=== PATIENT | male | born 1955 | race Caucasian/White ===

== ENCOUNTER → 2016-07-14 | Outpatient (CLI) | payer OTHER ==
[~2016-07-14] MED LIST: FEOSOL325 MG PO; IBUPROFEN800 MG PO; LASIX20 MG PO; LEVAQUIN750 MG PO; PERCOCET 10-321 EACH PO; PERCOCET 5-3251 EACH PO
== END ==
LOC: KOH-I 12:47
DX: J44.9 Chronic obstructive pulmonary disease, unspecified (principal)
CPT/HCPCS: 71020

== ENCOUNTER → 2016-07-30 | Outpatient (CLI) | payer OTHER ==
[2016-07-30 14:04] LABS: HEMOGLOBIN 15.4 gm/dl (14.0-17.5); RED BLOOD COUNT 5.33 M/UL (4.20-5.50); WHITE BLOOD COUNT 9.7 K/UL (4.5-11.0)
[2016-07-30 14:15] LABS: BUN/CREATININE RATIO 14 (0-10)
== END ==
LOC: OPSV2 12:14
PROVIDERS: Orthopaedic Surgery
DX: Z01.810 Encounter for preprocedural cardiovascular examination (principal); Z01.812 Encounter for preprocedural laboratory examination; Z01.818 Encounter for other preprocedural examination; M75.101 Unspecified rotator cuff tear or rupture of right shoulder, not specified as traumatic; J44.9 Chronic obstructive pulmonary disease, unspecified
CPT/HCPCS: 36415; 80048; 81001; 85025; 87081

== ENCOUNTER 2016-08-18 05:48 | Inpatient (IN) | payer OTHER ==
[~2016-08-18] VITALS: Ht 185.4 cm; Wt 102.1 kg
[~2016-08-18 05:48] MED LIST changes: -PERCOCET 10-321 EACH PO
[2016-08-18 06:51] LABS: BUN/CREATININE RATIO 14 (0-10)
[2016-08-19 06:14] LABS: HEMOGLOBIN 12.2 gm/dl (14.0-17.5); RED BLOOD COUNT 4.24 M/UL (4.20-5.50); WHITE BLOOD COUNT 8.1 K/UL (4.5-11.0)
[2016-08-19 06:20] LABS: BUN/CREATININE RATIO 13 (0-10)
[2016-08-20 06:41] LABS: HEMOGLOBIN 13.1 gm/dl (14.0-17.5); RED BLOOD COUNT 4.54 M/UL (4.20-5.50); WHITE BLOOD COUNT 10.7 K/UL (4.5-11.0)
[2016-08-20 07:00] LABS: BUN/CREATININE RATIO 11 (0-10)
[2016-08-20] MEDS ORDERED: PERCOCET 10-321 EACH PO (12:11)
== END 2016-08-20 13:06 | disposition home or self-care (01) | DRG 483 ==
LOC: OR 05:48 → M/S 05:49 → OR 08:15 → M/S 13:21 → OR 13:21 → M/S 08-20 13:06
PROVIDERS: ADMIT Orthopaedic Surgery
PROC: 0RRJ00Z Replacement of Right Shoulder Joint with Reverse Ball and Socket Synthetic Substitute, Open Approach (ICD-10-PCS; principal; 2016-08-18 08:15)
DX: M75.121 Complete rotator cuff tear or rupture of right shoulder, not specified as traumatic (principal); F17.210 Nicotine dependence, cigarettes, uncomplicated
CPT/HCPCS: 36415; 73020; 80048; 85025; 86850; 86900; 86901; 97535; C1751; C1776; J0171; J0690; J2250; J2270; J2795; J3010; J3370; J7030; J7040; J7120

== ENCOUNTER → 2020-05-02 | Outpatient (CLI) | payer MEDICARE ==
[~2020-05-02] MED LIST changes: +MEDROL4 MG PO; +NORCO 5-325 TA1 EACH PO; +PERCOCET 10-321 EACH PO
== END ==
LOC: KOH-I 10:06
DX: M51.16 Intervertebral disc disorders with radiculopathy, lumbar region (principal); M47.26 Other spondylosis with radiculopathy, lumbar region; M48.061 Spinal stenosis, lumbar region without neurogenic claudication; M47.817 Spondylosis without myelopathy or radiculopathy, lumbosacral region; M51.27 Other intervertebral disc displacement, lumbosacral region; M48.07 Spinal stenosis, lumbosacral region
CPT/HCPCS: 72148